=== PATIENT | male | born 1980 | race Hispanic/Latino ===

== ENCOUNTER 2025-05-23 19:50 | Emergency (ER) | payer OTHER, SELFPAY ==
[2025-05-23 19:55] VITALS: BP 159/87
--- NOTE | 2025-05-23 21:28 | ED.GENMED ---
History of Present Illness
General
Chief Complaint: Musculo-Skeletal Complaint
Time Seen by Provider: 05/23/25 21:28
History of Present Illness
History of Present Illness:
FOCUSED PAST MEDICAL HISTORY
- No significant past medical history
REVIEW OF OLD RECORDS
- No old records available for review in [facility]
Note:
CHIEF COMPLAINT(S)
Bilateral leg pain below the knees without swelling and low back pain.
HISTORY OF PRESENT ILLNESS
The patient is a 45-year-old male who presents with complaints of bilateral leg pain below the knees. The pain does not radiate to the thighs. There is no history of trauma or fall associated with the onset of symptoms. The patient denies any
swelling of the legs or pain upon palpation of the calves. Notably, there is no reported fever. Physical examination includes maneuvering the legs, such as simulated gas pedal pushes, which do not exacerbate the pain.
PHYSICAL EXAM
General: Alert, appears somewhat uncomfortable at times.
Skin: Warm, dry.
Head: Normocephalic, atraumatic.
Neck: Supple, trachea midline.
Eyes, Ears, Nose, Oral Mucosa: Moist mucosa.
Cardiovascular: Normal peripheral perfusion, No edema.
Respiratory: Respirations are non-labored.
Gastrointestinal: Abdomen nondistended.
Back: Some decreased range of motion of the thoracolumbar spine due to pain, no significant back tenderness, no midline L-spine tenderness, no midline T-spine tenderness
Musculoskeletal: Normal range of motion, normal strength. There is no calf swelling nor tenderness but reports pain at bilateral calves.
Neurological: Alert and oriented to person, place, time, and situation, No focal neurological deficit observed.
Psychiatric: Cooperative, appropriate mood & affect.
PLAN
Obtain blood work to assess underlying causes of the pain.
Administer an anti-inflammatory medication to manage leg pain.
DIFFERENTIAL DIAGNOSIS
The Differential Diagnosis includes, in no particular order and is not limited to:
1. Peripheral neuropathy
2. Deep vein thrombosis
3. Lumbar radiculopathy
4. Compartment syndrome
5. Peripheral artery disease
6. Muscular strain
7. Arthritis
8. Electrolyte imbalance
9. Chronic venous insufficiency
10. Vascular claudication
LABS
- White count hemoglobin normal, chemistries unremarkable, CK normal at 129
UPDATE
-SUMMARY OF ENCOUNTER
The patient, a 45-year-old male, presented to the emergency department with complaints of bilateral leg pain below the knees. Blood work was conducted and revealed normal white blood cell count, hemoglobin level, electrolytes, and kidney function. A
creatinine kinase level test was also performed to rule out muscle breakdown and returned normal. The patients symptoms suggested potential sciatica or a pinched nerve, although no definitive signs were observed. The patient was given an
anti-inflammatory medication during their visit, which provided some relief. Follow-up with a primary care doctor was recommended if symptoms persist or worsen, with a potential MRI for further evaluation in an outpatient setting.
DISPOSITION
Discharge
ASSESSMENT
The symptoms may indicate a nerve-related issue such as a pinched nerve or sciatica, though muscular or other vascular causes were considered less likely due to normal lab results.
PLAN
The patient should take zgqi-ohl-shvwynw ibuprofen every eight hours with food for a few days for pain relief. Acetaminophen can also be used for additional pain management, as it works differently than ibuprofen. Follow-up with a primary care
doctor is recommended if the symptoms persist, and an MRI may be considered for further evaluation.
MEDICATION RECONCILIATION
- Anti-inflammatory medication administered in the emergency department.
- Ompl-lry-uvdvych ibuprofen recommended every eight hours.
- Acetaminophen suggested as an additional pain management option.
MEDICAL DECISION MAKING
- Number and Complexity of Problems Addressed: Chronic conditions affecting care include possibilities such as pinched nerve or sciatica. Differential diagnosis considered peripheral neuropathy, deep vein thrombosis, lumbar radiculopathy,
compartment syndrome, peripheral artery disease, muscular strain, arthritis, electrolyte imbalance, chronic venous insufficiency, and vascular claudication.
- Data:
Category 1: Labs reviewed include normal white blood cell count, hemoglobin level, electrolytes, and kidney function. Creatinine kinase level was normal.
- Risk: Consideration of Admission/Observation: Escalation of care, including admission/observation was considered. However, ultimately the patient is deemed safe for outpatient management with close follow-up. Work-up is reassuring, does not reveal
any acute life/organ-threatening processes, patients symptoms are well-controlled upon reevaluation, reexamination is reassuring, vitals are stable, and the patient is agreeable with discharge, reliable for follow-up.
DIAGNOSIS
- Low back pain
- Muscle strain, unspecified leg (M62.40)
The patient has evidence of good perfusion distally, he has very good strength in the lower extremities, he has no calf swelling nor tenderness to suggest a blood clot. Basic blood work including CK are normal. He reports improvement after IV
Toradol was given. I recommended oral NSAIDs and Tylenol at home.
Phy Exam
Physical Exam
Physical Exam:
See HPI
Course
Orders/Labs/Results
Orders:
Orders
05/23/25 21:32
0.9% Sodium Chloride 1000 ml [Nss] 1,000 ml IV BOLUS
Ketorolac [Toradol] 15 mg IV NOW STA
05/23/25 22:01
Basic Metabolic Panel Urgent
CRP [C-Reactive Protein] Urgent
Complete Blood Count/With Diff Urgent
Total CK [Creatine Phosphokinase] Urgent
Abnormal Lab Results
05/23/25
22:01
Absolute Monos (auto) 0.8 H 10^3/uL
(0.1-0.6)
Glucose 125 H mg/dl
(70-99)
05/23/25 22:01
05/23/25 22:01
Vital Signs
Initial and Last Documented VS:
Initial Vital Signs
Temp Pulse Resp BP Pulse Ox
36.8 C 76 14 159/87 99
05/23/25 19:55 05/23/25 19:55 05/23/25 19:55 05/23/25 19:55 05/23/25 19:55
Last Documented Vital Signs
Temp Pulse Resp BP Pulse Ox
36.8 C 80 18 127/74 96
05/23/25 19:55 05/23/25 22:08 05/23/25 22:08 05/23/25 22:02 05/23/25 22:04
*Pulse Oximetry
SaO2: 99
Oxygen Mode of Delivery: Room air
Patient hypoxic: no
*Critical Care Note
Total Time (30-74mins, 75-104mins- exclusive of procedures): Not Applicable
ED Attending Note
-
Portions of this chart may have been created with voice recognition software.� Occasional wrong word or��sound alike� substitutions may have occurred due to the inherent limitations of voice recognition software.
Discharge Plan
Departure
Patient Disposition: Home (Routine Discharge)
Date of Disposition: 05/23/25
Time of Disposition: 22:47
Patient with high blood pressure during this ER visit?: Yes
Discharge Problem:
Low back pain
Instructions: Muscle, joint, and bone pain (DC), Low back pain - ED (DC), BLOOD PRESSURE
Activity Restrictions/Additional Instructions:
I recommend 3-4 oppf-mem-jfeszpw ibuprofen (Motrin) every 8 hours with food for a few days. Return here if worse. You could also take 1000 mg of Tylenol 4 times per day. White blood cell count, hemoglobin level, chemistry levels including kidney
function and electrolytes as well as creatinine kinase level are all normal. We gave an anti-inflammatory medicine by the IV called Toradol. This is a medicine similar to Motrin. Return if worse or other concerns.
Interventions
Interventions:
*Risk Screen - Suicide Last Done: 05/23/25 19:55
*General Assessment Last Done: 05/23/25 19:55
*Neglect/Abuse Screening Last Done: 05/23/25 19:55
*ED COVID-19 Vaccine History Last Done: 05/23/25 19:55
*ED Influenza Vaccine History Last Done: 05/23/25 19:55
ED-Musculoskeletal Assessment Last Done: 05/23/25 21:59
Discharge Date and Time
Print Language: [id number]
[2025-05-23 22:02] VITALS: BP 127/74
[2025-05-23] MEDS: TORADOL 15 MG IV (22:06)
[2025-05-23] MEDS: NSS 1000 IV (22:06)
[2025-05-23 22:19] LABS: Hematocrit 42.0 % (39.0-52.0); Hemoglobin 14.0 g/dL (13.0-18.0); Mean Corp Hgb Conc. 33.3 g/dL (33.0-37.0); Mean Corpuscular Volume 86.4 fL (80.0-94.0); Nucleated Red Blood Cells % 0 % (-); Platelet Count 309 10^3/uL (130-400); Red Cell Dist. Width 13.1 % (11.5-14.5)
[2025-05-23 22:32] LABS: Blood Urea Nitrogen 12 mg/dl (9-20); Calcium 9.5 mg/dl (8.4-10.2); Carbon Dioxide 30 mmol/L (22-30); Chloride 103 mmol/L (98-107); Glucose 125 mg/dl (70-99); Potassium 4.2 mmol/L (3.5-5.1); Sodium 135 mmol/L (135-145); eGFR > 60.00
[2025-05-23 23:00] VITALS: BP 131/69
[2025-05-23 23:24] LABS: C-Reactive Protein 14.40 mg/L (0.0-10.00)
== END 2025-05-23 23:09 | disposition home or self-care (01) ==
LOC: EMR 19:50
PROVIDERS: EMERGENCY PHYSICIAN Emergency Medicine; FAMILY PHYSICIAN Internal Medicine
DX: M54.50 Low back pain, unspecified (principal); M79.605 Pain in left leg; M79.604 Pain in right leg
CPT/HCPCS: 96374; 96361; 99284; 80048; 82550; 85025; 86140